=== PATIENT | male | born 1935 | race Caucasian/White ===

== ENCOUNTER 2021-05-24 16:37 | Emergency (ER) | payer MEDICARE ==
[~2021-05-24] VITALS: Ht 195.6 cm; Wt 111.4 kg
[~2021-05-24 16:37] MED LIST: ASPIRIN EC81 MG PO; ATENOLOL100 MG PO; AZITHROMYCIN250 MG PO; BACTRIM DS1 TAB PO; CENTRUM SILVER PO; CIPROFLOXACN250 MG PO; DILAUDID 2MG2 MG/TA1 PO; FLOMAX0.4 M1 PO; FLOMAX0.4 MG OR; LISINOP/HCTZ1 TA1 OR; MEDDOSEPAK PO; POLYTRIM OP; PROAIR HFA IN; PROVENTIL0.083 % IN; RESTORIL15 M1 OR; TAMSULOSIN0.4 MG OR; TENORMIN100 MG OR; TORSEMIDE20 M1 PO; TORSEMIDE20 MG OR; TRAMADOL HCL50 MG OR
[2021-05-24] MEDS ORDERED: AMLODIPINE BESYL5 MG PO (17:17)
[2021-05-24] MEDS ORDERED: LOSARTAN POTASS50 MG PO (17:17)
[2021-05-24] MEDS ORDERED: WIXELA INHUB 101 AER IN (17:18)
[2021-05-24 18:15] LABS: HEMATOCRIT 40.9 % (39.0-50.0); HEMOGLOBIN 13.3 g/dl (14.0-18.0); IMMATURE GRANULOCYTES 0.4 % (0.0-5.0); MEAN CORPUSCULAR HGB 28.6 pG CALC (26.0-32.0); MEAN CORPUSCULAR HGB CONC 32.5 g/dL CAL (32.0-36.0); NEUT# 6.23 thou/uL (1.82-7.42); RED BLOOD COUNT 4.65 mill/uL (4.70-6.10); RED CELL DISTRI WIDTH 12.8 % (11.5-15.5)
[2021-05-24 18:32] LABS: ALBUMIN 4.2 g/dL (3.2-5.0); ALKALINE PHOSPHATASE 69 u/l (38-126); AMYLASE 65 u/l (30-110); ANION GAP 11 (6-22 (CALC)); BILIRUBIN, TOTAL 0.7 mg/dL (0.0-1.4); BUN 24 mg/dL (8-23); BUN/CREATININE RATIO 18 (12-20 (CALC)); CARBON DIOXIDE 27 mmol/l (22-30); CHLORIDE 107 mmol/l (95-108); CREATININE 1.3 mg/dL (0.7-1.3); GFR 53 ML/MIN (>=60 (CALC)); GFR FOR AFR.AMER. > 60 ML/MIN (>=60 (CALC)); LIPASE 69 u/l (23-300); POTASSIUM 4.1 mmol/l (3.5-5.1); SGOT/AST 28 u/l (19-48); SODIUM 141 mmol/l (137-146); TOTAL PROTEIN 7.9 g/dL (6.3-8.2)
[2021-05-24 18:36] LABS: ACT PARTIAL THROMBO TIME 23.4 SECONDS (20.0-32.5); PROTHROMBIN TIME 10.1 SECONDS (9.0-12.5)
[2021-05-24 20:29] LABS: URINE BILIRUBIN - DIPSTICK NEGATIVE (NEGATIVE); URINE BLOOD DIPSTICK NEGATIVE (NEGATIVE); URINE COLOR YELLOW; URINE GLUCOSE - DIPSTICK NEGATIVE (NEGATIVE); URINE KETONE NEGATIVE (NEGATIVE); URINE LEUK ESTERASE NEGATIVE (NEGATIVE); URINE PROTEIN - DIPSTICK NEGATIVE (NEG-TRACE); URINE UROBILINOGEN - DIPSTICK 0.2 E.U./dL (0.2)
[2021-05-24 20:31] LABS: URINE NITRITE - DIPSTICK NEGATIVE (Negative)
[2021-05-24] MEDS ORDERED: VOLTAREN75 MG PO (20:45)
[2021-05-24 20:59] VITALS: BP 146/67
== END 2021-05-24 21:13 | disposition home or self-care (01) ==
LOC: ED 16:37
DX: S00.531A Contusion of lip, initial encounter (principal); S00.83XA Contusion of other part of head, initial encounter; S00.03XA Contusion of scalp, initial encounter; M54.50 Low back pain, unspecified; N32.9 Bladder disorder, unspecified; I10 Essential (primary) hypertension; Y04.2XXA Assault by strike against or bumped into by another person, initial encounter; Z85.46 Personal history of malignant neoplasm of prostate; Z20.822 Contact with and (suspected) exposure to COVID-19
CPT/HCPCS: Q9967

== ENCOUNTER 2022-04-30 16:20 | Emergency (ER) | payer MEDICARE ==
[2022-04-30] VITALS (8 sets, daily range): BP systolic 126–178; BP diastolic 65–88
[~2022-04-30] VITALS: Ht 195.6 cm; Wt 105.0 kg
[~2022-04-30 16:20] MED LIST changes: +AMLODIPINE BESYL5 MG PO; +LOSARTAN POTASS50 MG PO; +VOLTAREN75 MG PO; +WIXELA INHUB 101 AER IN
[2022-04-30 17:20] LABS: BASO% 0.1 % (0-3); EOS% 0.3 % (0-8); HEMATOCRIT 35.7 % (39.0-50.0); HEMOGLOBIN 12.2 g/dl (14.0-18.0); IMMATURE GRANULOCYTES 0.5 % (0.0-5.0); LYMPH% 5.4 % (15-41); MEAN CELL VOLUME 86.2 fL CALC (80.0-100.0); MEAN CORPUSCULAR HGB 29.5 pG CALC (26.0-32.0); MEAN CORPUSCULAR HGB CONC 34.2 g/dL CAL (32.0-36.0); MONO% 5.1 % (2-13); NEUT# 10.17 thou/uL (1.82-7.42); NEUT% 88.6 % (42-76); RED BLOOD COUNT 4.14 mill/uL (4.70-6.10); RED CELL DISTRI WIDTH 12.7 % (11.5-15.5)
[2022-04-30 17:26] LABS: ALBUMIN 4.3 g/dL (3.2-5.0); BILIRUBIN, TOTAL 0.4 mg/dL (0.0-1.4); CREATININE 1.5 mg/dL (0.7-1.3); POTASSIUM 4.4 mmol/l (3.5-5.1); TOTAL PROTEIN 7.8 g/dL (6.3-8.2)
[2022-04-30] MEDS ORDERED: ATENOLOL50 MG PO (17:35)
[2022-04-30] MEDS ORDERED: LIPITOR20 M1 PO (17:36)
[2022-04-30] MEDS ORDERED: CORICIDIN HBP (17:37)
[2022-04-30] MEDS ORDERED: ERLEADA60 MG (17:38)
[2022-04-30] MEDS ORDERED: ORGOVYX120 MG (17:38)
[2022-04-30] MEDS ORDERED: ASPIRIN81 MG PO (17:39)
[2022-04-30] MEDS ORDERED: FLUTICASONE P (17:40)
[2022-04-30] MEDS ORDERED: PREDNISONE20 MG PO (18:17)
[2022-04-30] MEDS ORDERED: IPRATROPIU0.5 MG/3 M IN (18:23)
[2022-04-30] MEDS ORDERED: BENZONATATE200 MG PO (18:23)
== END 2022-04-30 18:38 | disposition home or self-care (01) ==
LOC: ED 16:20
PROVIDERS: Internal Medicine
DX: J45.901 Unspecified asthma with (acute) exacerbation (principal); I10 Essential (primary) hypertension